=== PATIENT | male | born 1975 | race Two or more races ===

== ENCOUNTER 2020-06-15 04:10 | Outpatient (CLI) | payer OTHER | END 2020-06-15 04:11 | disposition home or self-care (01) | LOC: PPH VACUNA 04:10 | PROVIDERS: ATTEND Emergency Medicine Pediatric Emergency Medicine | DX: Z23 Encounter for immunization (principal) ==

== ENCOUNTER 2020-07-06 | Outpatient (CLI) | payer OTHER | END 2020-07-06 07:24 | disposition home or self-care (01) | LOC: PPH VACUNA | PROVIDERS: ATTEND Emergency Medicine Pediatric Emergency Medicine | DX: Z23 Encounter for immunization (principal) ==